=== PATIENT | male | born 1945 | race Caucasian/White ===

== ENCOUNTER 2019-05-28 07:52 | Emergency (ER) | payer OTHER ==
[~2019-05-28] VITALS: Ht 175.3 cm; Wt 77.1 kg
[2019-05-28 07:54] VITALS: Ht 175.3 cm; Wt 77.1 kg
[2019-05-28 08:51] LABS: BASOPHIL % 0.4 % (0-2); PLATELET COUNT 161 x10^3mcL (130-400)
[2019-05-28 09:00] LABS: CHLORIDE SERUM 109 mmol/L (98-107); CREATININE SERUM 1.1 mg/dL (0.7-1.3); GLUCOSE SERUM 205 mg/dL (74-106); POTASSIUM SERUM 3.7 mmol/L (3.5-5.1); SODIUM SERUM 145 mmol/L (136-145)
[2019-05-28 09:05] LABS: ALBUMIN 3.6 g/dL (3.4-5.0); ALKALINE PHOSPHATASE 80 U/L (46-116); ALT/SGPT 32 U/L (16-63); AST/SGOT 21 U/L (15-37); BILIRUBIN TOTAL 0.58 mg/dL (0.20-1.00); TOTAL PROTEIN, SERUM 6.7 g/dL (6.4-8.2)
[2019-05-28 09:06] LABS: RED CELL DISTRIBUTION WIDTH 15.6 % (11.5-14.5)
[2019-05-28 12:48] VITALS: BP 154/81
[2019-05-28 20:02] VITALS: BP 143/77
== END 2019-05-28 20:02 | disposition short-term general hospital (02) ==
LOC: ED 07:52
PROVIDERS: Emergency Medicine
DX: I50.9 Heart failure, unspecified (principal); E11.9 Type 2 diabetes mellitus without complications; G89.29 Other chronic pain; M79.606 Pain in leg, unspecified; F17.210 Nicotine dependence, cigarettes, uncomplicated; R09.02 Hypoxemia; I73.9 Peripheral vascular disease, unspecified
CPT/HCPCS: 36600; 83880; J1940; J1956; J2930; J7613; Q0092; Q9967